=== PATIENT | male | born 1955 | race Two or more races ===

== ENCOUNTER 2025-02-22 15:49 | Emergency (ER) | payer OTHER ==
[~2025-02-22] VITALS: Ht 172.7 cm; Wt 93.0 kg
[2025-02-22] MEDS ORDERED: VALSARTAN320 MG PO (16:31)
[2025-02-22] MEDS ORDERED: JANUMET 50-1,01 EACH PO (16:31)
[2025-02-22] MEDS ORDERED: DML FORTE CREA113 GM TP (16:32)
[2025-02-22] MEDS ORDERED: ATORVASTATIN CA10 MG PO (16:32)
[2025-02-22] MEDS ORDERED: ALLOPURINOL300 MG PO (16:32)
== END 2025-02-22 17:13 | disposition home or self-care (01) ==
LOC: ER 15:49
DX: S60.221A Contusion of right hand, initial encounter (principal); V49.9XXA Car occupant (driver) (passenger) injured in unspecified traffic accident, initial encounter; Y93.89 Activity, other specified; Y92.413 State road as the place of occurrence of the external cause; Y99.9 Unspecified external cause status; E11.9 Type 2 diabetes mellitus without complications; Z79.84 Long term (current) use of oral hypoglycemic drugs